=== PATIENT | female | born 1990 | race Caucasian/White ===

== ENCOUNTER 2019-02-21 21:43 | Emergency (ER) | payer SELFPAY ==
[~2019-02-21] VITALS: Ht 154.9 cm; Wt 90.0 kg
[2019-02-21] MEDS ORDERED: CELEXA20 MG PO (21:53)
[2019-02-21] MEDS ORDERED: AMOXICILLIN500 MG PO (23:21)
[2019-02-21 23:35] VITALS: BP 134/77
== END 2019-02-21 23:35 | disposition home or self-care (01) | DRG 153 ==
LOC: ED 21:43
DX: H66.92 Otitis media, unspecified, left ear (principal); J06.9 Acute upper respiratory infection, unspecified; R05 Cough; R09.81 Nasal congestion; R09.89 Other specified symptoms and signs involving the circulatory and respiratory systems; F17.210 Nicotine dependence, cigarettes, uncomplicated; J34.89 Other specified disorders of nose and nasal sinuses